=== PATIENT | female | born 1965 | race Caucasian/White ===

== ENCOUNTER 2016-12-18 12:56 | Emergency (ER) | payer MEDICAID ==
[2016-12-18] MEDS ORDERED: HYDROcod/ACETAM 5/325 MG TABLET PO STA (13:23)
[2016-12-18] MEDS ORDERED: HYDROcod/ACETAM 5/325 MG TABLET ONE (13:25)
== END 2016-12-18 13:53 | disposition home or self-care (01) ==
DX: H66.001 Acute suppurative otitis media without spontaneous rupture of ear drum, right ear (principal); B34.9 Viral infection, unspecified; R03.0 Elevated blood-pressure reading, without diagnosis of hypertension; Z88.1 Allergy status to other antibiotic agents